=== PATIENT | female | born 1945 | race African-American/Black ===

== ENCOUNTER 2018-01-12 18:40 | Emergency (ER) | payer OTHER ==
[2018-01-12 19:48] VITALS: BP 136/58; PULSE 58; TEMP 98.5; BMI 52.9
--- NOTE | 2018-01-12 20:06 | PDOC ---
History of Present Illness - General Chief Complaint: Eye Problem Stated Complaint: ALLERGIC REACTION Time Seen by Provider: 01/12/18 20:06 History Source: Patient Exam Limitations: No Limitations - History of Present Illness Initial Comments: CHIEF COMPLAINT: 72 y/o female with PMH HLD, glaucoma and demetia BIB her daughter for allergic reaction to eye drops. HISTORY OF PRESENT ILLNESS: The patient's eye doctor changed her eye drops and as soon as she started using them her eyes got swollen. The patient's daughter states she stopped using the drops last night and the swelling has improved. Denies fever. Vital signs on arrival are within normal limits. REVIEW OF SYSTEMS: (Provided by daughter) GENERAL/CONSTITUTIONAL: No fever HEAD, EYES, EARS, NOSE AND THROAT: +swelling to eyelids. SKIN: No rash or easy bruising. NEUROLOGIC: No headache, vertigo, loss of consciousness, or loss of sensation. PHYSICAL EXAM: GENERAL: The patient is awake, alert, and fully oriented, in no acute distress. SHe is well appearing and pleasant. HEAD: Normal with no signs of trauma. ENT: Pupils equal, round and reactive to light, extraocular movements intact, sclera anicteric, conjunctiva clear. Mild infra and supraorbital swelling b/l. No ptosis or proptosis. No entrapment NEUROLOGICAL: Normal speech, normal gait. CN II-XII grossly intact. SKIN: Warm, dry, normal turgor, no rashes or lesions noted. Past History - Past Medical History Allergies/Adverse Reactions: Allergies Allergy/AdvReac Type Severity Reaction Status Date / Time brimonidine [From Combigan] Allergy Verified 01/12/18 20:13 timolol [From Combigan] Allergy Verified 01/12/18 20:13 Home Medications: Ambulatory Orders ASA - 81 mg 01/12/18 Atorvastatin Ca 80 mg 01/12/18 Memantine HCl 10 mg 01/12/18 CVA: Yes COPD: No DVT: No Dementia: Yes Hypercholesterolemia: Yes - Suicide/Smoking/Psychosocial Hx Smoking History: Never smoked Information on smoking cessation initiated: No Hx Alcohol Use: No Drug/Substance Use Hx: No Substance Use Type: None *Physical Exam - Vital Signs Last Vital Signs Temp Pulse Resp BP Pulse Ox 98.5 F 58 L 20 136/58 99 01/12/18 19:38 01/12/18 19:38 01/12/18 19:38 01/12/18 19:38 01/12/18 19:38 Medical Decision Making - Medical Decision Making A/P: 72 y/o female with ADR to new eye medication. SYmptoms have improved since stopping the medication yesterday. Patient's daughter states she has the old eye drops at home. Suggested she flush eyes, switch back to old drops, and f/u with optho on monday. Suggested they return to the ER with any worsening or concerning symptoms. The patient's daughter and the patient verbalize understanding of all instructions, have no further questions and are awaiting discharge. *DC/Admit/Observation/Transfer Diagnosis at time of Disposition: Adverse drug reaction - Discharge Dispostion Disposition: HOME Condition at time of disposition: Good - Referrals Referrals: ON STAFF,NOT [Primary Care Provider] - Sam Argueta MD [Staff Physician] - - Patient Instructions Printed Discharge Instructions: DI for Adverse Drug Reaction -- Allergic Additional Instructions: DIscharge Instructions: -You most likely had an adverse drug reaction to the new eye drops you were prescribed -Please do not use the new eye drops any more -Flush eyes with water if needed -Since symptoms are improving no medication is necessary at this time -Please follow up with your eye doctor or Dr. Argueta on Monday -Return to the ER with any worsening or concerning symptoms. - Post Discharge Activity
== END 2018-01-12 20:47 | disposition home or self-care (01) ==
LOC: JERFT 18:40
DX: T49.5X5A Adverse effect of ophthalmological drugs and preparations, initial encounter (principal)
CPT/HCPCS: 99281-25